=== PATIENT | female | born 1965 | race Asian ===

== ENCOUNTER → 2016-08-18 | Outpatient (CLI) | payer OTHER | LOC: CIMAGING 12:12 | DX: Z12.31 Encounter for screening mammogram for malignant neoplasm of breast (principal) | CPT/HCPCS: G0202 ==

== ENCOUNTER → 2017-09-02 | Outpatient (CLI) | payer OTHER | LOC: CIMAGING 14:20 | PROVIDERS: ATTEND Family Medicine | DX: Z12.31 Encounter for screening mammogram for malignant neoplasm of breast (principal) ==